=== PATIENT | male | born 1980 | race Caucasian/White ===

== ENCOUNTER 2018-07-12 05:35 | Emergency (ER) | payer SELFPAY ==
[2018-07-12] MEDS ORDERED: Ondansetron PF 4 MG/2 ML Vial ONE (07:09)
[2018-07-12] MEDS ORDERED: Ketorolac Tromethamine 30 MG/ML VIAL ONE (07:09)
--- NOTE | 2018-07-12 09:20 | CT ---
PRELIMINARY REPORT/[facility]/EMERGENTY AFTER-HOURS PROCEDURE CT Maxillofacial Without Contrast EXAM DATE/TIME: 07/12/2018 6:48 AM CLINICAL HISTORY: 38 years old, male; Injury or trauma; Fall; Initial encounter; Blunt trauma (contusions or hematomas) ; Jaw; Bilateral; Injury details: Sent to [facility]. No previous. Er 8. . . . At 's house, 3-4 glasse s of wine. Fell. Blood to l ear. Neck and back pain. C collar and back board. A&ox3. Pupils sluggish. 130/90. 250 ml ns. D stick 112. 97.8 temp. TECHNIQUE: Axial computed tomography images of the face without intravenous contrast. All CT scans at this facility use at least one of these dose optimization techniques: automated expos ure control; mA and/or kV adjustment per patient size (includes targeted exams where dose is matched to clinical indication); or iterative reconstruction. Coronal and sagittal reformatted images were cr eated and reviewed. COMPARISON: No relevant prior studies available. FINDINGS: Orbits: No acute intraorbital abnormality. Globes are unremarkable. Sinuses: Normal. No air-fluid levels. Bones/joints: There is acute nondisplaced fracture of the LEFT mandibular condyle. Dental: There is dentigerous disease with several dental caries within the LEFT maxillary teeth and i s well as possible age-indeterminate tooth fractures. Soft tissues: There is stranding and air within the LEFT parapharyngeal soft tissues probably related to LEFT mandibular condyle fracture. IMPRESSION: There is acute nondisplaced fracture of the LEFT mandibular condyle. Thank you for allowing us to participate in the care of your patient. Dictated and Authenticated by: Esa Rodriguez MD 07/12/2018 7:19 AM Central Time ([place] & [place]) FINAL REPORT MAXILLOFACIAL CT WITHOUT CONTRAST: HISTORY: Fall. Trauma. COMPARISON: None. FINDINGS: This report is in agreement with the preliminary report by [facility]. Nondisplaced left mandibular condyla r fracture. There is induration of the left parapharyngeal fat which is presumed to be posttraumatic . Small pockets of air are noted and are also presumed to be posttraumatic. Extensive periodontal d isease as described in the preliminary report by [facility]. POS: [facility]
--- NOTE | 2018-07-12 09:22 | CT ---
PRELIMINARY REPORT/[facility]/EMERGENTY AFTER-HOURS PROCEDURE CT Head Without Contrast EXAM DATE/TIME: 07/12/2018 6:46 AM CLINICAL HISTORY: 38 years old, male; Injury or trauma; Fall; Initial encounter; Blunt trauma (contusions or hematomas) ; Injury details: Sent to [facility]. No previous. Er 8. . . . At family's house, 3-4 glasses of wine. Fell. Blood to l ear. Neck and back pain. C collar and back board. A&ox3. Pupils sluggish. 130/90. 250 ml ns. D stick 112. 97.8 temp. TECHNIQUE: Axial computed tomography images of the head/brain without contrast. COMPARISON: No relevant prior studies available. FINDINGS: Brain: Normal. No hemorrhage. No significant white matter disease. No edema. Ventricles: Normal. No ventriculomegaly. Bones/joints: Normal. No acute fracture. Sinuses: Normal as visualized. No acute sinusitis. Mastoid air cells: Normal as visualized. No mastoid effusion. Soft tissues: Normal. IMPRESSION: No acute intracranial hemorrhage. Thank you for allowing us to participate in the care of your patient. Dictated and Authenticated by: Esa Rodriguez MD 07/12/2018 7:12 AM Central Time ([place] & [place]) FINAL REPORT NONCONTRAST HEAD CT: HISTORY: Trauma. Fall. Pain. COMPARISON: None. FINDINGS: This report is in agreement with the preliminary report by [facility]. No intracranial posttraumatic sequel ae. POS: [facility]
--- NOTE | 2018-07-12 09:24 | CT ---
PRELIMINARY REPORT/[facility]/EMERGENTY AFTER-HOURS PROCEDURE CT Cervical Spine Without Contrast EXAM DATE/TIME: 07/12/2018 6:51 AM CLINICAL HISTORY: 38 years old, male; Injury or trauma; Fall; Initial encounter; Blunt trauma; Injury details: Sent to [facility]. No previous. Er 8. . . . At family's house, 3-4 glasses of wine. Fell. Blood to l ear. Neck and back pain. C collar and back board. A&ox3. Pupils sluggish. 130/90. 250 ml ns. D stick 112. 97.8 temp . TECHNIQUE: Axial computed tomography images of the cervical spine without intravenous contrast. All CT scans at this facility use at least one of these dose optimization techniques: automated exposure control; mA and/or kV adjustment per patient size (includes targeted exams where dose is matched to clinical jaya cation); or iterative reconstruction. Coronal and sagittal reformatted images were created and review ed. COMPARISON: No relevant prior studies available. FINDINGS: Vertebrae: The vertebral foramen are grossly intact. No acute cervical spine fracture is demonstrated . There is a reversal of the normal lordosis, related to positioning or spasm. Discs/Spinal canal/Neural foramina: No spinal stenosis. No neural foraminal narrowing. Soft tissues: Unremarkable. Lungs: Lung apices are normal. IMPRESSION: No acute cervical spine fracture is demonstrated. Thank you for allowing us to participate in the care of your patient. Dictated and Authenticated by: Esa Rodriguez MD 07/12/2018 7:10 AM Central Time ([place] & [place]) FINAL REPORT CT CERVICAL SPINE WITHOUT CONTRAST: HISTORY: Status post fall. Posttraumatic pain. COMPARISON: None. FINDINGS: This report is in agreement with the preliminary report by [facility]. There is no evidence of fracture. S traightening of normal cervical lordosis may be due to patient position, muscle spasm, or cervical co llar. The current study is not tailored to assess for ligamentous injury. If there is concern, MRI c an be performed. POS: [facility]
== END 2018-07-12 11:10 | disposition home or self-care (01) ==
LOC: EDBD 05:35 → ERS 05:35
DX: S06.0X9A Concussion with loss of consciousness of unspecified duration, initial encounter (principal); S02.612A Fracture of condylar process of left mandible, initial encounter for closed fracture; S16.1XXA Strain of muscle, fascia and tendon at neck level, initial encounter; S09.91XA Unspecified injury of ear, initial encounter; F98.8 Other specified behavioral and emotional disorders with onset usually occurring in childhood and adolescence; Z79.899 Other long term (current) drug therapy; W18.30XA Fall on same level, unspecified, initial encounter
CPT/HCPCS: 70450; 70486; 72125; 96374; 96375; J1885; J2405